=== PATIENT | female | born 1990 | race Two or more races ===

== ENCOUNTER 2016-08-23 20:38 | Emergency (ER) | payer SELFPAY | END 2016-08-23 23:28 | disposition home or self-care (01) | LOC: CED 20:38 | DX: T20.13XA Burn of first degree of chin, initial encounter (principal); T26.00XA Burn of unspecified eyelid and periocular area, initial encounter; Z23 Encounter for immunization; X10.1XXA Contact with hot food, initial encounter; Y92.009 Unspecified place in unspecified non-institutional (private) residence as the place of occurrence of the external cause | CPT/HCPCS: 90471; 90715; 99283 ==